=== PATIENT | male | born 1940 | race Caucasian/White ===

== ENCOUNTER 2018-07-20 14:20 | Outpatient (CLI) | payer MEDICARE, OTHER ==
[~2018-07-20] VITALS: Ht 170.2 cm; Wt 162.4 kg
[~2018-07-20 14:20] MED LIST: 00186-0370-20 IH; ACTOS 15MG TAB15 MG PO; ACTOS15 MG PO; CARDIZEM CD 24240 MG PO; CARDIZEM LA360 MG PO; CELEXA 20MG20 MG/TAB PO; CLOPIDOGREL; CORDARONE200 MG/TAB PO; COUMADIN4 MG PO; DIABETA 5MG5 MG/TAB PO; DITROPAN XL10 MG PO; ENABLEX 7.5MG7.5 MG PO; FLOMAX 0.40.4 MG/CAP PO; GLUCOPHAGE850 MG/TAB PO; GLYBURIDE MICRON3 MG PO; LANOXIN 0.25M0.25 MG PO; LASIX 40MG TABL40 MG PO; LEVAQUIN 5500 MG/TA1 PO; METFORMIN HCL850 MG PO; PERCOCET 325 MG1 TA2 PO; PERCOCET 5/321 UDTAB PO; PLAVIX 75MG TAB75 MG PO; PRAVACHOL 40MG40 MG PO; PROVENTIL0.09 MG/A1 IH; RT SPIRIVA18 MCG IH; SYMBICORT1 AE1; TOPROL XL 50MG50 MG PO; TOPROL XL50 MG PO; VALIUM 5MG T5 MG/TAB PO; VENTOLIN0.09 MG IH; ZESTRIL 10MG10 MG PO; ZITHROMAX Z PA250 MG PO; ZOCOR40 MG PO
--- NOTE | 2018-07-20 15:30 | NUR ---
Called MD office to notify pt urinated prior to coming onto the unit. Bladder scan result:30cc. Pt denied the urge to urinate. Max volume scanned was 110cc.Nurse verbalized understanding, pt okay to go home.
[2018-07-20 15:35] VITALS: BP 124/62; PULSE 70
== END 2018-07-20 17:00 ==
LOC: EUO 14:20
DX: R33.9 Retention of urine, unspecified (principal); R31.0 Gross hematuria

== ENCOUNTER → 2019-02-04 | Outpatient (CLI) | payer MEDICARE, OTHER | LOC: COL.RAD 08:14 | DX: N28.1 Cyst of kidney, acquired (principal); N26.1 Atrophy of kidney (terminal); R79.89 Other specified abnormal findings of blood chemistry; R94.5 Abnormal results of liver function studies; Z90.49 Acquired absence of other specified parts of digestive tract ==

== ENCOUNTER → 2020-09-30 | Outpatient (CLI) | payer MEDICARE, OTHER | LOC: COL.RAD 14:00 | DX: M46.1 Sacroiliitis, not elsewhere classified (principal) | CPT/HCPCS: G0260; J3301 ==